=== PATIENT | female | born 1975 | race Caucasian/White ===

== ENCOUNTER 2024-12-20 18:49 | Emergency (ER) | payer OTHER, SELFPAY ==
[2024-12-20 18:54] VITALS: BP 111/63
[2024-12-20 19:15] LABS: % Basophils 1.1 % (0-2); % Eosinophils 1.4 % (0-6); % Immature Granulocytes 0.3 % (0-0.5); % Lymphocytes 33.9 % (20.5-51.1); % Neutrophils 56.3 % (42.2-75.2); Absolute Basophils 0.1 10^3/uL (0-0.2); Absolute Eosinophils 0.1 10^3/uL (0-0.7); Absolute Lymphocytes 2.6 10^3/uL (1.2-3.4); Absolute Monocytes 0.5 10^3/uL (0.1-0.6); Absolute Neutrophils 4.3 10^3/uL (1.4-6.5); Hematocrit 41.5 % (37.0-47.0); Mean Corp Hgb Conc. 33.7 g/dL (33.0-37.0); Mean Corpuscular Hgb 30.6 pg (27.0-31.0); Mean Corpuscular Volume 90.6 fL (81.0-99.0); Mean Platelet Volume 9.6 fL (7.4-10.4); Nucleated Red Blood Cells % 0 %; Platelet Count 279 10^3/uL (130-400); Red Blood Cell Count 4.58 10^6/uL (4.20-5.40); Red Cell Dist. Width 12.7 % (11.5-14.5); White Blood Cell Count 7.6 10^3/uL (4.8-10.8)
[2024-12-20 19:34] LABS: ALT (SGPT) 19 U/L (0-35); AST (SGOT) 19 U/L (14-36); Albumin 4.1 g/dl (3.5-5.0); Alkaline Phosphatase 90 U/L (38-126); Blood Urea Nitrogen 13 mg/dl (7-17); Calcium 9.7 mg/dl (8.4-10.2); Carbon Dioxide 27 mmol/L (22-30); Glucose 89 mg/dl (70-99); Total Bilirubin 0.6 mg/dl (0.2-1.3); Total Protein 6.8 g/dl (6.3-8.2); eGFR > 60.00
[2024-12-20 19:39] LABS: Troponin I < 0.012 ng/ml
[2024-12-20 19:53] LABS: Chloride 102 mmol/L (98-107); Potassium 4.1 mmol/L (3.5-5.1); Sodium 137 mmol/L (135-145)
[2024-12-20 19:55] LABS: HCG, Serum Qualitative Screen Negative
[2024-12-20 21:07] VITALS: BP 128/70
[2024-12-20 21:19] VITALS: BMI 29.4
[2024-12-20 22:00] VITALS: BP 114/61
--- NOTE | 2024-12-20 22:55 | ED.GENMED ---
History of Present Illness
General
Chief Complaint: Chest Pain
Time Seen by Provider: 12/20/24 21:51
History of Present Illness
History of Present Illness:
49-year-old female presents emergency department for evaluation of right-sided chest pain ongoing for the past 2 weeks. Seems to be sharp episodic pain lasting approximately 2 to 3 seconds, increasing in frequency over the past week. States that
is occurring roughly every minute or less currently. Not associated with shortness of breath. No obvious modifying factors. No associated fever, chills, sweats, nausea, vomiting, or diarrhea.
Review of Systems
Review of Systems
Allergies reviewed?: Yes
All Other Systems: ROS reviewed and negative except as documented in HPI and ROS
Phy Exam
Physical Exam
Physical Exam:
GEN: Well appearing, NAD, WDWN
HEENT: Oral mucosa moist, no scleral icterus
Cardiac: Regular rate and rhythm, no murmurs
Lung: No respiratory distress, no tachypnea, lungs clear to auscultation bilaterally
Chest: No reproducible chest wall tenderness
MSK: No gross deformity or injuries
Skin: Good color, no pallor or jaundice, no rashes
Neuro: AO x3, moves all extremities freely
Psych: Calm, cooperative
Scores
Heart Score for Chest Pain Patients
STEMI patient?: No
History: Slightly or Non-Suspicious
ECG: Normal
Age: >45 - <65 years
Risk Factors: 1 or 2 Risk Factors
Troponin: </= Normal Limit
Heart Score for Chest Pain Patients: 2
Heart Score Risk: 2.5% MACE over next 6 weeks
Course
Orders/Labs/Results
Orders:
Orders
12/20/24 18:49
ECG [Electrocardiogram (*1)] Urgent
Reason for Study: Chest Pain
EKG- Treatment ONCE
12/20/24 18:59
Test Result ONCE
12/20/24 19:03
Complete Blood Count/With Diff Urgent
Comprehensive Metabolic Panel Urgent
HCG, Serum Qualitative Screen Urgent
Comment: Notify provider if positive test present
Troponin I Urgent
12/20/24 21:11
Chest [CR Chest - 2 Views ] Urgent
Comment:
Reason For Exam: chest pain
12/20/24 19:03
12/20/24 19:03
Vital Signs
Initial and Last Documented VS:
Initial Vital Signs
Temp Pulse Resp BP Pulse Ox
97.7 F 70 20 111/63 100
12/20/24 18:54 12/20/24 18:54 12/20/24 18:54 12/20/24 18:54 12/20/24 18:54
Last Documented Vital Signs
Temp Pulse Resp BP Pulse Ox
97.7 F 70 17 114/61 99
12/20/24 18:54 12/20/24 22:15 12/20/24 22:15 12/20/24 22:00 12/20/24 22:15
MDM/Problems Addressed
MDM/Problems Addressed:
Unclear etiology to symptoms. Not clearly associated with the sternocostal joints to suggest a costochondritis. Cardiac workup is benign. She has no risk factors for PE and the episodic nature of her pain is suspicious for a musculoskeletal
etiology. Will recommend she use benzodiazepines at home as a muscle relaxant and try a magnesium of supplement. Primary care follow-up if symptoms worsening
*Critical Care Note
Total Time (30-74mins, 75-104mins- exclusive of procedures): Not Applicable
ED Attending Note
-
Portions of this chart may have been created with voice recognition software.� Occasional wrong word or��sound alike� substitutions may have occurred due to the inherent limitations of voice recognition software.
Discharge Plan
Departure
Patient Disposition: Home (Routine Discharge)
Date of Disposition: 12/20/24
Time of Disposition: 22:58
Patient with high blood pressure during this ER visit?: No
Discharge Problem:
Atypical chest pain
Instructions: Chest Pain That Is Not Caused by the Heart (DC)
Prescriptions:
No Action
citalopram 20 mg Tablet
20 mg PO DAILY
lorazepam 0.5 mg Tablet
0.5 mg PO DAILY PRN (Reason: anxiety)
pantoprazole 40 mg Tablet,Delayed Release (Dr/Ec)
40 mg PO DAILY
Belsomra 20 mg Tablet
20 mg PO HS
Referrals:
Silvano Srivastava MD [Family Provider] -
Activity Restrictions/Additional Instructions:
Try over the counter magnesium supplement once to twice daily
Try over the counter ibuprofen 400-600mg every 6-8 hours for 3-5 days to see if this lessens pain episodes
Follow up with your primary care physician
Interventions
Interventions:
*Risk Screen - Suicide Last Done: 12/20/24 18:54
*General Assessment Last Done: 12/20/24 18:54
*Neglect/Abuse Screening Last Done: 12/20/24 18:54
*ED- Fall Risk Assessment Last Done: 12/20/24 21:19
ED- Cardiac Assessment Last Done: 12/20/24 21:19
Discharge Date and Time
Print Language: KHMER
--- NOTE | 2024-12-20 23:01 | EDRN ---
Updated patient on results and plan for discharge
== END 2024-12-20 23:26 | disposition home or self-care (01) ==
LOC: EMR 18:49
PROVIDERS: Emergency Medicine; EMERGENCY PHYSICIAN Emergency Medicine; FAMILY PHYSICIAN Family Medicine
DX: R07.89 Other chest pain (principal)
CPT/HCPCS: 99283; 71046; 80053; 84484; 84703; 85025; 93005